=== PATIENT | female | born 1980 | race Caucasian/White ===

== ENCOUNTER 2022-06-04 10:33 | Emergency (ER) | payer OTHER, SELFPAY ==
[2022-06-04 10:40] VITALS: BP 126/67; PULSE 70; RESP 20; TEMP 37.2; O2SAT 100
--- NOTE | 2022-06-04 10:43 | ED.URI ---
HPI - URI/Sore Throat General Chief Complaint: Upper Respiratory Infection Stated Complaint: Sore Throat Time Seen by Provider: 06/04/22 10:43 Source: patient and RN notes reviewed History of Present Illness HPI Narrative: Patient is a 41-year-old female presents to urgent care with complaints of sore throat, nasal drainage, headache and bilateral ear pain. Patient states it started on Thursday and has worsened. 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 Denies any fever, nausea or vomiting. Patient has not taken anything [id number] for her symptoms. No other acute complaints. No acute distress noted. Patient aware of the plan of care. Some parts of this dictation were generated by voice recognition software and may contain typographical and/or grammatical inaccuracies. Related Data Allergies Allergy/AdvReac Type Severity Reaction Status Date / Time No Known Allergies Allergy Verified 06/04/22 10:56 Review of Systems Review of Systems: CONSTITUTIONAL: Denies fever, chills, or sweats. EYES: Denies visual changes, redness, or discharge. ENT: Reports sore throat, nasal drainage bilateral otalgia CARDIOVASCULAR: Denies chest pain, palpitations, or edema. RESPIRATORY: Denies cough or dyspnea. GASTROINTESTINAL: Denies abdominal pain, nausea, vomiting, or diarrhea. GENITOURINARY: Denies dysuria or hematuria. SKIN: Denies rash or itching. MUSCULOSKELETAL: Denies back pain, joint pain, or myalgia. NEUROLOGIC: Reports of headache All other systems reviewed are negative, except as documented in HPI. PMFSH Comments At the time of my signature, I reviewed and agree with the nursing past medical, surgical, social, and family history. There is no relevant family history pertinent to the patient complaint. Exam Narrative: GENERAL: This is a well-nourished, well-developed patient, in no apparent distress. HEAD: normocephalic, atraumatic. EYES: PERRL. Sclera clear/white. Vision is grossly intact. EARS: External ears normal, auditory canals clear and without drainage, TMs normal without perforation. Hearing grossly intact. NOSE: External nose normal with no obvious nasal discharge, nares without redness, no rhinorrhea. THROAT: Mucous membranes moist. Mild bilateral tonsillar edema/erythema with bilateral exudate moderate postnasal drainage. NECK: Neck supple, non-tender without lymphadenopathy CARDIOVASCULAR: Regular rate and rhythm RESPIRATORY: Clear to auscultation. Breath sounds equal bilaterally. No wheezes, rales, or rhonchi. SKIN: warm, intact with no suspicious lesions or rash, good texture and turgor. NEURO: awake, alert, and oriented to person, place and time. There were no obvious focal neurologic abnormalities. EXTREMITIES: No clubbing, cyanosis, or edema. Course Course Level of Care: Express Care Visit Vital Signs Vital signs: Vital Signs Temperature 99 F 06/04/22 10:40 Pulse Rate 70 06/04/22 10:40 Respiratory Rate 20 06/04/22 10:40 Blood Pressure 126/67 06/04/22 10:40 Pulse Oximetry 100 06/04/22 10:40 Oxygen Delivery Room Air 06/04/22 10:40 Temperature 99 F 06/04/22 10:40 Pulse Rate 70 06/04/22 10:40 Respiratory Rate 20 06/04/22 10:40 Blood Pressure 126/67 06/04/22 10:40 Pulse Oximetry 100 06/04/22 10:40 Oxygen Delivery Room Air 06/04/22 10:40 Reviewed MDM - URI/Sore Throat MDM Narrative Medical decision making narrative: Reviewed lab results with the patient. She is aware that strep swab was negative. Educated patient on the culture however we will not be calling for positive or negative consider treatment was given. Advised the patient to complete the oral steroid and antibiotic regimen as prescribed. You may call the facility within 2 days to check on her culture results and stop the antibiotic if negative. Use Tylenol/ibuprofen as needed for pain or fever. Increase water intake. If you are positive for strep, your
== END 2022-06-04 11:25 | disposition home or self-care (01) ==
PROVIDERS: Emergency Provider Nurse Practitioner Family; PCP Family Medicine
DX: J02.9 Acute pharyngitis, unspecified (principal)
CPT/HCPCS: 87081; 87880; 99213; G0463